=== PATIENT | male | born 1965 | race Caucasian/White ===

== ENCOUNTER 2018-10-17 00:23 | Outpatient (CLI) | payer BC, SELFPAY ==
--- NOTE | 2018-10-17 13:00 | ETT_ITS ---
*[facility]* *[facility]* [address] [place] [address] Stress Electrocardiography Pee protocol Date of study: 10/17/2018 *PATIENT PRESENTATION* Height: 166.4cm (65.5in) Blood Pressure: Weight: 90.9kg (200lb) BSA: 2.08m^2 Referring physician: Karan Wright Ordering physician: Karan Wright Impressions: Normal study after maximal exercise. Summary: 1. Stress ECG conclusions: The stress ECG is negative. 2. Stress: The target heart rate was achieved. There is a normal resting blood pressure with an appropriate response to stress. The patient experienced no chest pain during stress. Exercise capacity is average for age. Indication: R07.9. History: REASON FOR VISIT: INTERMITTENT CHEST PAINS FOR PAST 6-7 MONTHS RADIATING TO THE LEFT ARM PIT AND NECK. SYMPTOMS LAST FOR ONLY A FEW MINUTES EACH TIME, OCCURS AT REST AND WITH ACTIVITY. NOTHING MAKES IT BETTER OR WORSE. HE DENIES ANY ASSOCIATED SHORTNESS OF BREATH. HIS FATHER RECENTLY HAD CARDIAC STENTS PLACED. Risk factors: FORMER SMOKER. QUIT 4 YEARS AGO. Family history of coronary artery disease. Obesity. Dyslipidemia. Cholesterol: 245mg/dl. HDL: 39mg/dl. LDL: 220mg/dl. Triglycerides: 180mg/dl. ALLERGIES: NO KNOWN ALLERGIES. MEDICATIONS: SIMVASTATIN 40 MG Q HS. ASPIRIN 81 MG DAILY. Protocol: Pee protocol. Baseline ECG: SINUS RHYTHM. HR 78 BPM. Stress protocol: + +---+ + !Stage !HR !BP (mmHg) ! + +---+ + !Baseline supine !78 !126/80 (95) ! + +---+ + !Baseline standing !88 !122/80 (94) ! + +---+ + !Stage I; 1.7mph, 10degrees; 3 min !113!140/80 (100)! + +---+ + !Stage II; 2.5mph, 12degrees; 3 min !128!160/80 (107)! + +---+ + !Stage III; 3.4mph, 14degrees; 3 min!140!166/90 (115)! + +---+ + !Immediate post stress !---!166/84 (111)! + +---+ + !Recovery; 3 min !95 !140/74 (96) ! + +---+ + !Recovery; 6 min !90 !130/70 (90) ! + +---+ + * Stress results: Maximal heart rate during stress was 148bpm (88% of maximal predicted heart rate). The maximal predicted heart rate was 168bpm. The target heart rate was achieved. There is a normal resting blood pressure with an appropriate response to stress. The rate-pressure product for the peak heart rate and blood pressure was 29589jl Hg/min. The patient experienced no chest pain during stress. Exercise capacity is average for age. Stress ECG: STRESS TEST ENDED IN 10 MINUTES BECAUSE OF FATIGUE. NORMAL HEART RATE AND BLOOD PRESSURE RESPONSE TO EXERCISE. MAX HR = 148 % OF TARGET = 88 NO ECTOPY APPROXIMATE METS ACHIEVED = 11.80 NO [address]GINA. NO SIGNIFICANT ST SEGMENT CHANGES. AVERAGE FUNCTIONAL CAPACITY FOR EXERCISE. The stress ECG is negative. Study data: Alton Kerns MD supervised and was readily available during the procedure. This study was interpreted by [facility]. Study status: Routine. Consent: The risks, benefits, and alternatives to the procedure were explained to the patient and informed consent was obtained. Procedure: Initial setup. A baseline ECG was recorded. Surface ECG leads and manual cuff blood pressure measurements were monitored. Heart sounds: Normal. Lung sounds: Normal. Treadmill exercise testing was performed using the Pee protocol. Study completion: The patient tolerated the procedure well and was discharged from the lab. Discharge: The patient left the laboratory in stable condition. Birthdate: Patient birthdate: 1965. Sex: Gender: male. Study date: Study date: 10/17/2018. Study time: 01:00 PM. Signature Documentation: The Stress ECG portion of this study was interpreted by Alton Kerns MD. Electronically signed by Alton Kerns 10/17/2018 17:48
== END 2018-10-17 00:43 ==
PROVIDERS: PCP Family Medicine; Visit Provider Nurse Practitioner Family
DX: R07.9 Chest pain, unspecified (principal); E78.5 Hyperlipidemia, unspecified; E66.9 Obesity, unspecified; Z87.891 Personal history of nicotine dependence; Z82.49 Family history of ischemic heart disease and other diseases of the circulatory system
CPT/HCPCS: 93017

== ENCOUNTER 2018-10-29 11:03 | Outpatient (CLI) | payer BC, SELFPAY ==
[2018-10-29 15:16] LABS: Cholesterol 246 mg/dL (50-200); HDL Cholesterol 42 mg/dL (40-60); LDL CHOLESTEROL 178 mg/dL (<100); Triglyceride 213 mg/dL (30-150)
[2018-10-29 16:04] LABS: Hemoglobin A1C 5.7 % (4.5-6.2)
== END 2018-10-29 11:23 ==
PROVIDERS: PCP Family Medicine; Visit Provider Family Medicine
DX: E78.5 Hyperlipidemia, unspecified (principal); E74.39 Other disorders of intestinal carbohydrate absorption
CPT/HCPCS: 36415; 80061; 83721; 83036

== ENCOUNTER 2021-05-08 09:31 | Outpatient (CLI) | payer BC, SELFPAY ==
--- NOTE | 2021-05-08 09:15 | DI.RAD_ITS ---
Exam(s) XR KNEE LT 3V AP,LAT,CHANTEL EXAM: XR KNEE LT 3V AP,LAT,CHANTEL CLINICAL HISTORY: LEFT KNEE PAIN. TECHNIQUE: 2D digital imaging was performed. COMPARISON: CR LEFT KNEE LIMITED 1 OR 2 VIEWS from 07/18/2012 FINDINGS: There is no evidence of fracture but there is a joint effusion noted. There has been interval surger y. There is a fastener device evident at the level of the anterior tibial tubercle now evident. The re are significant osteoarthritic degenerative changes now evident. There is [id number] narrowing of the medial compartment. Also prominent degenerative changes and osteophytes at the patellofemoral compartment level. Lesser amount of degenerative changes evident in the lateral compartment. IMPRESSION: Compared to 2011 there has been interval surgical procedure. Significant osteoarthritic degenerative changes. Joint effusion noted DATA REPOSITORY: RADIATION DOSE DELIVERED:
--- NOTE | 2021-05-08 09:45 | DI.RAD_ITS ---
Exam(s) XR STANDING ALIGNMENT EXAM: XR STANDING ALIGNMENT CLINICAL HISTORY: Surgical planning. TECHNIQUE: 2D digital imaging was performed. COMPARISON: Left knee x-rays same date FINDINGS: There healed oblique fractures of the right tibia and fibula approximately midshaft level. There is a fastener in the left proximal tibial metaphysis and there is significant narrowing of the medial compartment of the left knee. Mild narrowing of the medial compartment of the opposite-right knee. Preserved height of the lateral compartments of both knees noted. Hips appear unremarkable as do the ankles. IMPRESSION: DATA REPOSITORY: RADIATION DOSE DELIVERED:
== END 2021-05-08 09:32 | disposition home or self-care (01) ==
PROVIDERS: PCP Family Medicine; Referring Provider Family Medicine; Visit Provider Student in an Organized Health Care Education/Training Program
DX: M17.12 Unilateral primary osteoarthritis, left knee (principal); M25.462 Effusion, left knee
CPT/HCPCS: 73562; 77073

== ENCOUNTER 2021-08-21 01:59 | Outpatient (CLI) | payer BC, SELFPAY ==
[2021-08-21 07:54] LABS: HCT 45.9 % (40.0-50.0); HGB 15.8 g/dL (13.5-17.5); MCH 30.1 pg (27.0-33.0); MCHC 34.4 % (32.0-36.0); MCV 87.4 fL (80-95); MPV 10.2 fL (8.0-11.0); Platelet Count 224 10^3/uL (130-400); RBC 5.25 10^6/uL (4.36-5.78); RDW 12.4 % (11.8-14.1); RDW-SD 40.1 fL; WBC 5.75 10^3/uL (4.4-10.8)
[2021-08-21 08:52] LABS: Anion Gap 10.9 mmol/L (3-11); BUN 17 mg/dL (7-18); CO2 27.1 mmol/L (21.0-32.0); Calcium 9.2 mg/dL (8.5-10.1); Chloride 102 mmol/L (98-107); Glucose 125 mg/dL (74-106); Potassium 4.3 mmol/L (3.5-5.1); Sodium 140 mmol/L (136-145)
== END 2021-08-21 02:00 | disposition home or self-care (01) ==
LOC: LBO 01:59
PROVIDERS: PCP Family Medicine; Visit Provider Student in an Organized Health Care Education/Training Program
DX: M25.562 Pain in left knee (principal); M17.12 Unilateral primary osteoarthritis, left knee; Z01.818 Encounter for other preprocedural examination; Z01.812 Encounter for preprocedural laboratory examination
CPT/HCPCS: 36415; 80048; 85027

== ENCOUNTER 2021-08-21 02:03 | Outpatient (CLI) | payer BC, SELFPAY ==
[2021-08-21 11:10] LABS: Source Nasal/Nares
[2021-08-21 14:55] LABS: COVID-19 PCR Negative (Negative)
== END 2021-08-21 02:04 | disposition home or self-care (01) ==
LOC: LBO 02:04
PROVIDERS: PCP Family Medicine; Visit Provider Student in an Organized Health Care Education/Training Program
DX: Z20.822 Contact with and (suspected) exposure to COVID-19 (principal); Z01.818 Encounter for other preprocedural examination
CPT/HCPCS: 87635

== ENCOUNTER 2021-08-23 08:09 | Day surgery (SDC) | payer BC, SELFPAY ==
[2021-08-23] VITALS (11 sets, daily range): BP systolic 119–154; BP diastolic 75–96; PULSE 60–78; RESP 13–20; TEMP 36.3–36.8; O2SAT 94–99; BMI 31.8
[2021-08-23] MEDS: Acetaminophen 500 MG TAB 1000 MG PO ×2 (08:50→13:31)
[2021-08-23] MEDS: Gabapentin 300 MG CAP PO (08:50)
[2021-08-23] MEDS: Celecoxib 200 MG CAP 400 MG PO (08:50)
[2021-08-23] MEDS: Lactated Ringers 1,000 ML 80 ML IV (09:05)
--- NOTE | 2021-08-23 09:14 | W.ANESPRE ---
General Info Date of Service Date Performed: 08/23/21 Height: 5 ft 6 in Weight: 89.6 kg Body Mass Index (BMI): 31.8 Surgical Procedure: Operation Date: 08/23/21 10:10 Proposed Procedures Side Surgeon p Knee Total Arthroplasty Left Catrachito Ruiz MD Meds Allergies and Home Medications Allergies Allergy/AdvReac Type Severity Reaction Status Date / Time No Known Allergies Allergy Unverified 08/23/21 08:32 Home Medication Medication Instructions Recorded nitroglycerin 0.3 mg sublingual 0.3 mg SL Q5M PRN #25 tab 10/29/18 tablet rosuvastatin 40 mg tablet 40 mg PO DAILY #90 tab 03/09/21 acetaminophen 1,000 mg PO Q8H PRN PRN #90 cap 08/23/21 aspirin 81 mg PO BID #60 tab 08/23/21 celecoxib 200 mg PO BID #60 cap 08/23/21 gabapentin 300 mg PO QHS #14 cap 08/23/21 oxycodone 5 mg PO Q4H PRN #20 tab MDD 6 tabs 08/23/21 pantoprazole 40 mg PO DAILY #30 tab 08/23/21 Current Visit Medications: Current Medications Generic Name Dose Route Start Last Admin Trade Name Freq PRN Reason Stop Dose Admin Acetaminophen 1,000 mg 08/23/21 06:00 08/23/21 08:50 Acetaminophen 500 Mg Tab PO 08/23/21 16:00 1,000 mg PREOP FELICIA Administration Celecoxib 400 mg 08/23/21 06:00 08/23/21 08:50 Celecoxib 200 Mg Cap PO 08/23/21 16:00 400 mg PREOP FELICIA Administration Gabapentin 300 mg 08/23/21 06:00 08/23/21 08:50 Gabapentin 300 Mg Cap PO 08/23/21 16:00 300 mg PREOP FELICIA Administration Tranexamic Acid 1,000 mg/ 60 mls @ 360 mls/hr 08/23/21 06:00 Sodium Chloride IVPB 08/23/21 16:00 PREOP FELICIA Tranexamic Acid 1,000 mg/ 60 mls @ 360 mls/hr 08/23/21 06:00 Sodium Chloride IVPB 08/23/21 16:00 DIRECTED FELICIA Ringer's Solution 1,000 mls @ 80 mls/hr 08/23/21 06:00 08/23/21 09:05 IV 09/21/21 23:59 80 mls/hr INFUSION FELICIA Administration Cefazolin Sodium/Dextrose 2 gm in 50 mls @ 100 mls/hr 08/23/21 06:00 Ancef Duplex IVPB 09/21/21 23:59 PREOP FELICIA IV Miscellaneous Supplies 1 each 08/23/21 06:00 Iv Access IV 09/21/21 23:59 DIRECTED FELICIA Sodium Chloride 0 ml 08/23/21 06:00 Normal Saline Flush 10 Ml Syr IV 09/21/21 23:59 PRN PRN Sodium Chloride 0 ml 08/23/21 06:00 Normal Saline 10 Ml Vial IJ 09/21/21 23:59 DIRECTED PRN Sterile Water 0 ml 08/23/21 06:00 Water,Injection,Sterile 10 Ml Vial IJ 09/21/21 23:59 DIRECTED PRN PFSH Active Problems Active Problems: Problem Status Onset Code Diarrhea 02/22/14 R19.7 Elev transaminase/LDH 09/26/06 R74.0 Hyperlipidemia E78.5 Joint pain M25.50 Non-alcoholic fatty liver disease 08/27/07 K76.0 Tobacco use disorder F17.200 Tubular adenoma of colon 02/18/17 D12.6 Borderline high blood pressure R03.0 Status post arthroscopy of left knee Z98.890 History of appendectomy Z90.49 Brief depressive adjustment reaction F43.21 Throat infection J02.9 Primary osteoarthritis of left knee M17.12 Medical History Medical History Hyperlipidemia Non-alcoholic fatty liver disease Tobacco dependence Surgical History Surgical History (Updated 08/23/21 @ 09:37 by ELLA Novoa) Appendectomy Colonoscopy - MAC (02/18/17) History of total left knee replacement (TKR) (08/23/21) S/P left knee arthroscopy Tobacco Smoking/Tobacco Use Status: Current every day Tobacco Type: smokeless tobacco Alcohol Alcohol Intake: never Substance Use Details: chews tobacco daily-last used 08.23.21 am Vital Signs and Lab Results Vital Signs Most Recent Vital Signs in EMR: Most Recent Vital Signs Temp Pulse Resp BP Pulse Ox 36.8 C 78 16 139/84 99 08/23/21 08:26 08/23/21 08:26 08/23/21 08:26 08/23/21 08:26 08/23/21 08:26 Lab Results Blood Type / Crossmatch: No Data to Display Complete Blood Count: White Blood Count 5.75 10^3/uL (4.4-10.8) 08/21/21 07:51 08/21/21 Red Blood Count 5.25 10^6/uL (4.36-5.78) 08/21/21 07:51 08/21/21 Hemoglobin 15.8 g/dL (13.5-17.5) 08/21/21 07:51 08/21/21 Hematocrit 45.9 % (40.0-50.0) 08/21/21 07:51 08/21/21 Platelet Count 224 10^3/uL (130-400) 08/21/21 07:51 08/21/21 Complete Metabolic Panel: Sodium Level 140 mmol/L (136-145) 08/21/21 07:51 08/21/21 Potassium Level 4.3 mmol/L (3.5-5.1) 08/21/21 07:51 08/21/21 Chloride Level 102 mmol/L (98-107) 08/21/21 07:51 08/21/21 Carbon Dioxide Level 27.1 mmol/L (21.0-32.0) 08/21/21 07:51 08/21/21 Blood Urea Nitrogen 17 mg/dL (7-18) 08/21/21 07:51 08/21/21 Creatinine 1.0 mg/dL (0.70-1.30) 08/21/21 07:51 08/21/21 Estimated GFR/1.73 m2 >= 60.00 (mL/min/1.73m2) 08/21/21 07:51 08/21/21 Calcium Level 9.2 mg/dL (8.5-10.1) 08/21/21 07:51 08/21/21 Glucose Level 125 mg/dL (74-106) H 08/21/21 07:51 08/21/21 Liver Function Panel: No Data to Display Coagulation Panel: No Data to Display Cardiac Panel: No Data to Display Arterial Blood Gas: No Data to Display Venous Blood Gas: No Data to Display Pancreas Panel: No Data to Display Thyroid Panel: No Data to Display Infectious Disease: Coronavirus (COVID-19)(PCR) Negative (Negative) 08/21/21 08:34 08/21/21 Coronavirus 2019 Source Nasal/Nares 08/21/21 08:34 08/21/21 Blood Cultures: No Data to Display Toxicology Panel: No Data to Display Imaging and Studies Imaging and Studies Stress Test Summary: 10/17/2018: Impressions: Normal study after maximal exercise. Summary: 1. Stress ECG conclusions: The stress ECG is negative. 2. Stress: The target heart rate was achieved. There is a normal resting blood pressure with an appropriate response to stress. The patient experienced no chest pain during stress. Exercise capacity is average for age. Anesthesia Assessment and Plan Anesthesia History Personal History: No History of Anesthesia Complications Family History: No Family History of Anesthesia Complications Exercise Tolerance Exercise Tolerance: Metabolic Equivalents>4 Pertinent Negatives Pertinent Negatives: No Symptoms of GERD, No Major Cardiovascular Symptoms or Complaints and No Major Pulmonary Symptoms or Complaints Cardiac & Pulmonary Exam Cardiac Exam: Normal S1/S2 Heart Sounds Pulmonary Exam: Clear Bilateral Breath Sounds Airway Exam Known Difficult Airway: No Mallampati Class: 2 Mouth Opening: Normal (> 3cm) Thyromental Distance: Greater than 3 cm Neck Range of Motion: Full ROM Neck Circumference: Normal Teeth Condition: Normal Dentition ASA Classification ASA Score: ASA 2 Emergency Case?: No NPO Status NPO Status: NPO Clears >2 hours, Solids >8 hours Anesthesia Plan Resuscitation Status: Full Code Anesthesia Technique: Spinal Anesthesia Airway Planned: Natural Airway Pain Management: Surgeon and patient request nerve block Monitors Used: Standard Monitors
--- NOTE | 2021-08-23 09:36 | PDOC.DSDIS_ITS ---
Documented by User: ELLA Novoa 08/23/21 14:10 Discharge Plan Disposition Patient Disposition: HOME Condition: Good Discharge Details Reason For Visit: Left TKA Attending Provider: Catrachito Ruiz Primary Care Provider: Yamil Abrams Home Meds and New Rx's Prescriptions: New celecoxib 200 mg capsule 200 mg PO BID Qty: 60 RF: 0 aspirin 81 mg tablet,delayed release (DR/EC) 81 mg PO BID Qty: 60 RF: 0 pantoprazole 40 mg tablet,delayed release (DR/EC) 40 mg PO DAILY Qty: 30 RF: 0 gabapentin 300 mg capsule 300 mg PO QHS Qty: 14 RF: 0 acetaminophen 500 mg capsule 1,000 mg PO Q8H PRN PRNQty: 90 RF: 3 oxycodone 5 mg tablet 5 mg PO Q4H MDD 6 tabs PRN (Reason: pain) Qty: 20 RF: 0 Continued nitroglycerin 0.3 mg tablet, sublingual 0.3 mg SL Q5M PRN (Reason: chest pain) Qty: 25 RF: 0 rosuvastatin 40 mg tablet 40 mg PO DAILY Qty: 90 RF: 3 Discontinued aspirin [Aspirin Low-Strength] 81 MG tablet,chewable 81 mg PO DAILY 4 Days RF: 30 Discharge Instructions Additional Instructions: Total Knee Discharge Instructions Activity: The most important activity is to walk. You should try to take short walks a few times a day. It is important that when resting you work on keeping the knee straight. Avoid putting a pillow behind the knee as this will encourage flexion. Work on range of motion exercises as provided by Physical Therapy. If you have the [employer] bike coming, this will be your primary tool for exercise after the knee replacement. You should use it and follow the directions for the knee. Utilize the other exercises sparingly based on your symptoms. - Start outpatient physical therapy within 2 weeks. - You should wear the KENDAL hose on both legs for 2 weeks. You may remove these at night. You may also use any compression sock in place of the KENDAL hose. - Utilize [employer] to review exercises, see videos on exercises and obtain basic information pertaining to your surgery and your recovery. Dressing: Remove the Samir wrap by 2 days after your surgery and put on the KENDAL stocking given to you from the hospital. Keep the surgical dressing (underneath the SAMIR wrap) in place for at least one week. After the first week it may be removed and replaced with light gauze and tape or nothing. The wound and dressing may get wet after 3 days but avoid soaking the dressing or otherwise it will need to be changed. Many people prefer covering the dressing with cling wrap (saran wrap) to minimize it from getting soaked. If it gets wet, just pat dry. If it starts to peel off then it will need to be changed. Medications: - You should take Tylenol and anti-inflammatory Celebrex as your primary pain control medications. If the Celebrex is too expensive or not covered, please call the office for another alternative (Advil/Ibuprofen or Naproxen/Aleve) - You have been prescribed a stronger pain medication Oxycodone for breakthrough pain, take as needed as prescribed. - You have also been prescribed a stomach acid reduction agent Pantoprozole to help reduce stomach acid and reflux. - You have been prescribed Gabapentin to take at night for restlessness and nerve pain. - You will be taking Aspirin 81mg twice a day for DVT prevention unless instructed otherwise. - If you have constipation you should take Colace or Miralax (both [id number]). It takes most people 3-4 days to have a bowel movement. Follow-up: 2 weeks If you have any acute concerns or questions, please do not hesitate to contact the office at [phone]. You may contact Dr. Ruiz with any questions after hours through the hospital at [phone] or on his cell phone at [phone]. Stand Alone Forms: Anesthesia Discharge Inst., Deni.Nerve Block Instructions, [employer] (DSU) Equipment/Supplies: Walker Activity:: Activity as Tolerated Shower/Bathe:: Cover Diet:: As Tolerated Discharge Orders Discharge Orders: Discharge Order (Routine); Ordered 08/23/21 Ordered By: Catrachito Ruiz DS: Diagnosis Discharge Diagnosis (1) Primary osteoarthritis of left knee: Status: Acute (2) History of total left knee replacement (TKR): Status: Acute Documented by User: Catrachito Ruiz MD 08/23/21 15:08 Discharge Plan Disposition Patient Disposition: HOME Condition: Good Discharge Details Reason For Visit: Left TKA Attending Provider: Catrachito Ruiz Primary Care Provider: Yamil Abrams Home Meds and New Rx's Prescriptions: New celecoxib 200 mg capsule 200 mg PO BID Qty: 60 RF: 0 aspirin 81 mg tablet,delayed release (DR/EC) 81 mg PO BID Qty: 60 RF: 0 pantoprazole 40 mg tablet,delayed release (DR/EC) 40 mg PO DAILY Qty: 30 RF: 0 gabapentin 300 mg capsule 300 mg PO QHS Qty: 14 RF: 0 acetaminophen 500 mg capsule 1,000 mg PO Q8H PRN PRNQty: 90 RF: 3 oxycodone 5 mg tablet 5 mg PO Q4H MDD 6 tabs PRN (Reason: pain) Qty: 20 RF: 0 Continued nitroglycerin 0.3 mg tablet, sublingual 0.3 mg SL Q5M PRN (Reason: chest pain) Qty: 25 RF: 0 rosuvastatin 40 mg tablet 40 mg PO DAILY Qty: 90 RF: 3 Discontinued aspirin [Aspirin Low-Strength] 81 MG tablet,chewable 81 mg PO DAILY 4 Days RF: 30 Discharge Instructions Additional Instructions: Total Knee Discharge Instructions Activity: The most important activity is to walk. You should try to take short walks a few times a day. It is important that when resting you work on keeping the knee straight. Avoid putting a pillow behind the knee as this will encourage flexion. Work on range of motion exercises as provided by Physical Therapy. If you have the [employer] bike coming, this will be your primary tool for exercise after the knee replacement. You should use it and follow the directions for the knee. Utilize the other exercises sparingly based on your symptoms. - Start outpatient physical therapy within 2 weeks. - You should wear the KENDAL hose on both legs for 2 weeks. You may remove these at night. You may also use any compression sock in place of the KENDAL hose. - Utilize [employer] to review exercises, see videos on exercises and obtain basic information pertaining to your surgery and your recovery. Dressing: Remove the Samir wrap by 2 days after your surgery and put on the KENDAL stocking given to you from the hospital. Keep the surgical dressing (underneath the SAMIR wrap) in place for at least one week. After the first week it may be removed and replaced with light gauze and tape or nothing. The wound and dressing may get wet after 3 days but avoid soaking the dressing or otherwise it will need to be changed. Many people prefer covering the dressing with cling wrap (saran wrap) to minimize it from getting soaked. If it gets wet, just pat dry. If it starts to peel off then it will need to be changed. Medications: - You should take Tylenol and anti-inflammatory Celebrex as your primary pain control medications. If the Celebrex is too expensive or not covered, please call the office for another alternative (Advil/Ibuprofen or Naproxen/Aleve) - You have been prescribed a stronger pain medication Oxycodone for breakthrough pain, take as needed as prescribed. - You have also been prescribed a stomach acid reduction agent Pantoprozole to help reduce stomach acid and reflux. - You have been prescribed Gabapentin to take at night for restlessness and nerve pain. - You will be taking Aspirin 81mg twice a day for DVT prevention unless instructed otherwise. - If you have constipation you should take Colace or Miralax (both [id number]). It takes most people 3-4 days to have a bowel movement. Follow-up: 2 weeks If you have any acute concerns or questions, please do not hesitate to contact the office at [phone]. You may contact Dr. Ruiz with any questions after hours through the hospital at [phone] or on his cell phone at [phone]. Stand Alone Forms: Anesthesia Discharge Inst., Anes.Nerve Block Instructions, [employer] (DSU) Equipment/Supplies: Walker Activity:: Activity as Tolerated Shower/Bathe:: Cover Diet:: As Tolerated Discharge Orders Discharge Orders: Discharge Order (Routine); Ordered 08/23/21 Ordered By: Catrachito Ruiz
[2021-08-23] MEDS: ceFAZolin 2 GM/50 ML BAG IVPB (10:21)
[2021-08-23] MEDS: Bupivacaine 0.25% Pres-Free 30 ML VIAL (10:34)
[2021-08-23] MEDS: Normal Saline 20 ML VIAL (10:34)
[2021-08-23] MEDS: Ketorolac 30 MG/ML VIAL (10:34)
--- NOTE | 2021-08-23 10:36 | W.ANESNERVE ---
Nerve Block Single Injection Procedure Date and Time Date Performed: 08/23/21 Procedure Start: 09:42 Location Where Procedure Performed Procedure Location: Day Surgery Unit Reason Performed: Postoperative Analgesia Requesting Provider: Catrachito Ruiz Timeout Performed Timeout Performed: No Monitoring Used ECG, Blood Pressure and SpO2 Sterility Sterility: Hand Hygiene, Surgical Cap, Surgical Mask, Sterile Gloves, Eye Protection and Chlorhexidine Sedation Given During Procedure Sedation Given (Indicate Dose Given): Versed IV Dose:: 2mg Patient Mental Status Patient Mental Status: Awake Nerve Block 1st Nerve Block: Laterality: Left Block Type: Fascia Iliaca Needle / Catheter Used: 100mm SonoPlex II Local Anesthetic Bolus (Indicate Dose Given): Lidocaine used for local infiltration of skin, Injected in 3-5ml increments after negative blood aspiration and Bupivacaine 0.25% Dose:: 15mL Additives (Indicate Dose Given): None Ultrasound: Sterile probe cover and gel used Ultrasound Image Saved?: Yes Nerve Stimulator: Not Used Paresthesia: None Procedure Tolerated: No Complications Procedure Outcome: Successful Performed By: Pamela Oreilly
--- NOTE | 2021-08-23 11:49 | W.PM.OP ---
Date of service: 08/23/21 Time of Service: 11:49 Operative Note Operative Note DATE OF PROCEDURE: 08/23/21 PRE-OP DIAGNOSIS: Left Knee Osteoarthritis POST-OP DIAGNOSIS: same PROCEDURE: Left Total Knee Replacement SURGEON: Catrachito Ruiz BI ANALYST: Oliverio Golden Refer to Anesthesia Record ESTIMATED BLOOD LOSS: 200 PATHOLOGY: none sent TOURNIQUET TIME: 0 COMPLICATIONS: None Patient was transported to: PACU Patient's condition: stable Implants: 1. Depuy Attune Cementless Cruciate Retaining Femoral Component, Size 6 2. Depuy Attune Cementless Rotating Platform Tibial Component, Size 6 3. Depuy Attune 6x5mm CR/RP Poly 4. Depuy Attune Patellar Component, Size 38 Indications: I have seen Darrius in clinic for symptoms of knee arthritis, confirmed with radiographic findings. He has exhausted nonoperative methods and was having significant limitations in daily function and desired better function and less pain. I discussed the technical details of a knee replacement. I explained the risks of the procedure to include, but not limited to, bleeding, infection, pain, stiffness, fracture, damage to nerves and vessels, damage to muscles and tendons, loosening, need for repeat procedure, blood clot and cardiopulmonary demise. Despite these risks, Darrius elected to proceed. Findings: There was significant signs of arthritis throughout the knee involving all 3 compartments. There was notable scarring around the patellar tendon and the prominent tibial tubercle. Procedure Description: Darrius was greeted in the preoperative holding area where the correct side was identified and marked. The consent was reviewed with the patient and signed. The history and physical was updated. All questions were answered. Preoperative medications were administered: Acetaminophen 1000mg, Celebrex 400mg, and Gabapentin 300mg. An adductor canal block was then administered by the anesthesia team in the PACU. Darrius was taken back to the operating room. A spinal anesthestic was then administered. The patient was placed into the supine position on the operating room table. A nonsterile tourniquet was placed high onto the leg but only used for cementing. Posts were placed for positioning during the procedure. All bony prominences were well padded. Prophylactic antibiotics in the form of Cefazolin were administered. 1g of Tranxemic Acid was given intravenously within 30 minutes of incision. The left leg was then prepped with Chloraprep and draped in a standard fashion with impervious stockinette. A second prep with Chloraprep was performed prior to application of Iodine impregnated skin protection. A timeout to confirm correct identity, side and site, procedure, allergies, anesthesia, and medical concerns was performed. With the knee in some flexion, a midline incision was made overlying the knee. Full thickness skin flaps were raised once the extensor mechanism was encountered. These were raised medially and laterally. Any bleeding was controlled with electrocautery. Once the extensor mechanism was fully exposed, a medial parapatellar arthrotomy was performed in a flexed position. All bleeding from the arthrotomy and the geniculate arteries was coagulated. A medial subperiosteal peel was performed with electrocautery to the midcoronal plane. The fat pad was removed while keeping the patellar tendon protected. The anterior distal femur synovium was removed for later visualization. The ACL and PCL were resected and the anterior horn of the lateral meniscus was transected. The knee was then flexed with the patella everted. Large osteophytes from the tibia were removed. Large osteophytes from the femur were removed. There was notable scarring around the patellar tendon an the prominent tibial tubercle. This was released off of the periphery of the tibial plateau. Using a step drill, and based on preoperative templating, the femoral canal was entered. This was done with a step drill without any difficulty. The intramedullary distal femoral cut guide was inserted, set to a 5 degree valgus cut and 9mm cut thickness. The distal femoral cut guide was then held in position and pinned. With the soft tissues protected, the distal cut was performed. This was passed over a few times to ensure a planar cut. I then turned attention to the tibia. The extramedullary guide was placed onto the leg. The distal aspect was slid medial to adjust for position of center of ankle and stay in line with shaft of the tibia. Approximately 3-5 degrees of posterior slope was kept in the proximal cutting guide. The center of the guide was aligned with the PCL. The stylus was used to assess cut thickness. The medial side, most involved side, was set for a 4mm cut. This was then held in position and pinned into place with 2 additional pins and a cross pin for stability. The medial and lateral collateral ligaments were protected and the cut was performed. With this completed, it was assessed and noted to be of appropriate dimensions. The guide was removed. A spacer block was inserted and the knee was brought into extension. The 5mm spacer block provided full extension, without hyperextension and with stability of both the medial and lateral collateral ligaments was assessed. The pins from the femur and the tibia were then removed. The distal femur was then sized. The anterior stylus was placed onto the lateral ridge of the anterior femur. This indicated a size 6 femur. The external rotation of the guide was adjusted to 3 degrees to match the epicondylar axis, perpendicular to [place]?s line. The 4-in-1 cutting guide was the placed. The posterior medial femur cut was evaluated and appeared of good thickness. The spacer block was inserted underneath the cutting guide and stability was confirmed in 90 degrees of flexion. An eber wing was used to confirm appropriate position of the anterior cut to avoid notching. This cutting guide was ensured to be flush on the cut surface and then pinned into place with headed pins. While protecting the soft tissues, quad tendon, and collateral ligaments, the anterior and posterior cuts were performed with a saw. The central two pins were removed and the posterior and anterior chamfers were cut next. The notch-cutting guide was placed. This was pinned to lateralize the femoral component as much as possible while keeping it flush on the cut surface. This was then pinned into position. A reciprocating saw was used to make the notch cut. A rasp smoothed the cut surfaces. The medial and lateral menisci were removed. A trial femoral component was then inserted, impacted down to the cut surfaces, and the lug holes were drilled. A provisional trial tibial component was placed and the knee was brought through range of motion. There was noted to be excellent extension and flexion. There was no significant instability. The patella was tracking without thumbs. A size 5mm polyethylene component provided the best range of motion and stability with less than 2mm gapping with medial and lateral stress and full extension without significant hyperextension. The tibial cut surface was fully exposed. The tibia was then sized as a 6. The tibia had been previously marked during trialing to correspond to the center of the tibial component to help with rotation. The trial was aligned to this oliverio, approximately rotated to the medial 1/3rd of the tibial tubercle. The trial was pinned into place. The tibia was prepared with a reamer and a keel punch and lug holes. The knee was then brought into extension and the patella was measured as 29mm. Using the patellar clamp and cut guide, this was resected to a flat surface with at least 13mm of thickness remaining. The size 38 patella fit the best. This was oriented and then clamped into position. The lugs were drilled. The trial components were removed. The final components were opened on the back table. The periosteal and capsular tissues, especially posteriorly, around the knee were then systematically injected with a periarticular cocktail consisting of 50cc 0.25% Marcaine, 30mg Ketorolac, 20cc of Exparal and 50cc of injectable saline. The knee was thoroughly irrigated with a pulse lavage and dried. Irrisept was also used to irrigate the tissues. On the back table, with the implants opened, the cement was mixed. One batch of high viscosity cement was prepared with vacuum assistance. After the cement was ready a small amount was placed on the cut surface of the patella and the patellar button was clamped into position and held. While the cement was hardening, the cementless knee components were placed. Starting with the tibial component, the tibia was subluxed anteriorly and the lug holes of the component were lined up. The tibia was then impacted with an impactor and mallet until the tibial component was in contact with the tibia. The final polyethylene component was inserted. Then, the femoral component was inserted. The lug holes were aligned and the component was impacted into position. The knee was irrigated with Irrisept chlorhexadine solution. This was allowed to sit in the knee for 3 minutes. After the cement had finally cured, approximately 15min, the clamp was removed from the patella and the knee was taken through range of motion. The patella was tracking with a no-thumbs technique. The capsule was then reapproximated with a No. 1 Vicryl at multiple locations. The capsule was finally closed with a No. 2 Stratafix, barbed suture. The second dosing of 1g TXA was started. Deep tissues were then reapproximated with 0 Vicryl and 2-0 Vicryl. The skin was closed with a running 3-0 Monocryl in a subcuticular fashion. This was reinforced with skin glue. A Mepilex silver dressing was applied along with a [id number] ROBERTO wrap. A CryoCuff was applied. Darrius was transferred to the hospital bed without difficulty an suffering no apparent complication. Darrius has a good prognosis. Physical therapy will start today and without restrictions, weight-bearing as tolerated. Aspirin 81mg BID will be used for DVT prophylaxis.
[2021-08-23] MEDS: oxyCODONE 5 MG TAB PO (13:31)
--- NOTE | 2021-08-23 14:13 | PT.INIE ---
Date of service: 08/23/21 Time of Service: 14:13 PT Notes Visit Reasons: Left TKA Physical Therapy Day Surgery Initial Evaluation Date: 08/23/2021 Referring Doctor: ELLA Novoa PT Orders: PT CONSULT: Status post Ortho surgery. Status post left TKA. Precautions: WBAT on left LE with AD. Patient Profile/Admitting Diagnosis: Irving is a 56-year-old male with primary unilateral osteoarthritis of the left knee and is status post left total knee arthroplasty on postoperative day 0. PMHX: Medical History Hyperlipidemia Non-alcoholic fatty liver disease Tobacco dependence Surgical History Appendectomy Colonoscopy - MAC (02/18/17) Social History/Home Situation: Lives with in a private home. Has 2 steps to enter without rails through the garage and 4 steps through the front of the house with rails on both sides. 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 Independent with all aspects of ADLs prior to surgery. Equipment Owned/DME: None Subjective: Reports numbness on the sole of the left foot. Denies left knee pain, headache, dizziness, and chest pain throughout. Objective: General Observation: TEDS on R leg. ROBERTO wraps to left LE. Cryocuuff to left knee. Mental Status: Alert oriented x4. Pain: 0/10 ROM: Right Lower Extremity: Hip flexion WFL. Hip abduction WFL. Knee flexion WFL. Ankle dorsiflexion WFL. Ankle plantarflexion WFL. Left Lower Extremity: Hip flexion WFL. Hip abduction WFL. Knee flexion 30 degrees to 100 degrees. Knee extension -30 degrees ankle dorsiflexion WFL. Ankle plantarflexion WFL. Strength: Right Lower Extremity: Hip flexors 5/5. Hip abductors 5/5. Knee flexors 5/5. Knee extensors 5/5. Ankle dorsiflexors 5/5. Ankle plantarflexors 5/5. Left Lower Extremity:Hip flexors 4/5. Hip abductors 4/5. Knee flexors 3-/5. Knee extensors 3-/5. Ankle dorsiflexors 5/5. Ankle plantarflexors 5/5. Sensation: Numbness on the left sole of the foot otherwise intact as to pain and light pressure on bilateral lower extremities Bed Mobility/Transfers: Supine to sit supervision Sit to stand standby assist Stand to sit standby assist Bed to chair standby assist Gait: Instructed patient with level surface ambulation of 150 feet using front-wheeled walker with step through gait pattern requiring only standby assist. Reports numbness on the left sole of the feet but is able to manage with safe gait pattern. Good left quad activation. Minimal cues provided for overall safety as patient tends to look down on the floor too much. Stairs: Able to negotiate up and down 6 x 4 inch steps and 4 x 6 inch steps while holding onto 1 rail and using a single-point cane with the other hand with step to gait pattern requiring only standby assist with minimal cues provided for safety and correct technique. Balance: Static Sitting: Normal Dynamic Sitting: Normal Static Standing: Fair Dynamic Standing: Fair Special Tests: Mobility Limitations Standardized Measure [facility] AM-PAC 6 clicks Basic Mobility Inpatient Short Form: Raw Score: 24 CMS Score: 0% deficit Informed Consent/Education: Patient instructed in purpose of PT consult. Packet containing TKA exercise protocol has been given to patient. Education and training on initial set of exercises that can be done at home have been completed with patient. Assessment: Irving requires the use of front wheeled walker for all mobility ADL performance to reduce fall risk and maximize safety at home. Left sole of foot numb. Patient presents with clinical signs and symptoms consistent with current/admitting diagnoses that have resulted to mobility limitations, gait instability, generalized weakness, and impairment of motor control as demonstrated by the following impairment level findings: 1. Decreased strength to left knee major muscle groups 2. Impaired standing balance 3. Limitation of joint range of motion in left knee 4. Number left sole of foot Impairments are contributing to the following functional limitations: 1. Inability to safely ambulate without assistive device 2. Increase completion time for mobility ADL performance 3. Increased fall risk Patient is assessed as a 96435 moderate complexity based on the following: History: 56-year-old male with impairment level findings, functional limitations, and past medical history as indicated above Examination: Demonstrable impairment in strength, balance, and mobility level with underlying impairments and functional limitations as documented above Presentation: Evolving Decision Makin moderate complexity Goals: N/A. PT evaluation and 1-2 treatment sessions only for functional mobility training using recommended AD and for HEP instruction. Plan of Care/Treatment Plan: N/A. PT evaluation and 1-2 treatment session only for functional mobility training using recommended AD and for HEP instruction. DISCHARGE RECOMMENDATIONS: Home when medically cleared by orthopedic surgeon. Outpatient PT services to facilitate return to vocational activities and to independent community ambulation without an assistive device. TREATMENT CODE/TIME: 9716 2 x 20 minutes, 9753 0 x 9 minutes beginning at 14:13 PM. Thank you for the opportunity to participate in the care of this patient. Radha Marti PT, DPT, CLT [facility] [place], [place]
--- NOTE | 2021-08-23 15:26 | W.ANESPOSTOP ---
Postoperative Evaluation Date, Time and Location Date Performed: 08/23/21 Time Performed: 15:26 Patient Location: Day Surgery Unit Vital Signs Most Recent Imported Vital Signs: Most Recent Vital Signs Temp Pulse Resp BP Pulse Ox 36.4 C L 69 18 140/82 98 08/23/21 14:07 08/23/21 14:07 08/23/21 14:07 08/23/21 14:07 08/23/21 14:07 Pain Score Most Recent Pain Score: Most Recent Pain Score Pain Level 0 08/23/21 14:07 Assessment Mental Status: Awake (Alert & Oriented to Patient Baseline) Airway and Respiratory Function: Patent airway with normal (patient baseline) respiratory exam Cardiovascular Function: Hemodynamically Stable Hydration Status: Adequately Hydrated Nausea & Vomiting: No Nausea or Vomiting Pain: Pt. Denies Any Pain Peripheral Nerve Block: Regional nerve block not resolved at time of post operative discharge Postoperative Comments:: Patient discharged prior to anesthesia being able to see him. Per [facility] RN patient doing well with pain well controlled.
--- NOTE | 2021-08-23 21:51 | W.PM.OP ---
Date of service: 08/23/21 Operative Note Operative Note DATE OF PROCEDURE: 08/23/21 PRE-OP DIAGNOSIS: Left Knee DJD POST-OP DIAGNOSIS: same PROCEDURE: 1. Depuy Attune Cementless Cruciate Retaining Femoral Component, Size 6 2. Depuy Attune Cementless Rotating Platform Tibial Component, Size 6 3. Depuy Attune 6x5mm CR/RP Poly 4. Depuy Attune Patellar Component, Size 38 SURGEON: Catrachito Ruiz INSERTING PRESS OPERATOR: Brett Golden ANESTHESIA TYPE: Spinal Refer to Anesthesia Record ESTIMATED BLOOD LOSS: 200 PATHOLOGY: none sent TOURNIQUET TIME: 0 Patient was transported to: PACU Patient's condition: stable Implants: 1. Depuy Attune Cementless Cruciate Retaining Femoral Component, Size 6 2. Depuy Attune Cementless Rotating Platform Tibial Component, Size 6 3. Depuy Attune 6x5mm CR/RP Poly 4. Depuy Attune Patellar Component, Size 38
== END 2021-08-23 15:08 | disposition home or self-care (01) ==
PROVIDERS: PCP Family Medicine; Visit Provider Student in an Organized Health Care Education/Training Program
PROC: (CPT 27447; principal; 2021-08-23 10:00)
DX: M17.12 Unilateral primary osteoarthritis, left knee (principal); K76.0 Fatty (change of) liver, not elsewhere classified; E78.5 Hyperlipidemia, unspecified; F17.210 Nicotine dependence, cigarettes, uncomplicated
CPT/HCPCS: 27447; 97162; 97530; J0690; J1885; J2001; J2250; J2405; J3010

== ENCOUNTER 2021-09-07 12:41 | Outpatient (CLI) | payer BC, SELFPAY ==
--- NOTE | 2021-09-07 08:00 | DI.RAD_ITS ---
Exam(s) XR KNEE LT 1V XR STANDING ALIGNMENT EXAM: XR STANDING ALIGNMENT CLINICAL HISTORY: 1ST POST OP L TKA. TECHNIQUE: 2D digital imaging was performed. Standing AP views were performed from the pelvis throu gh the ankles. COMPARISON: CR XR STANDING ALIGNMENT from 05/08/2021 CR XR KNEE LT 1V from 09/07/2021 CR XR KNEE LT 1V from 09/07/2021 FINDINGS: Left total knee prosthesis. No abnormal bony lucencies. Some anterior soft tissue swelling and join t effusion remain present. There are old fractures of the right upper to mid tibia and fibula. There is mild bilateral hip join t space narrowing. The ankles are unremarkable. At the level of the femoral heads, there is a leg l ength discrepancy of approximately 9 millimeters with the right femoral head projecting superior to t he left. Enthesophytes are noted at the iliac wings. IMPRESSION: Mild significant leg length discrepancy. Unremarkable left total knee prosthesis. DATA REPOSITORY: RADIATION DOSE DELIVERED:
== END 2021-09-07 12:42 | disposition home or self-care (01) ==
LOC: DIORS 12:41
PROVIDERS: PCP Family Medicine; Referring Provider Family Medicine; Visit Provider Physician Assistant
DX: Z96.652 Presence of left artificial knee joint (principal); M21.70 Unequal limb length (acquired), unspecified site; Z47.1 Aftercare following joint replacement surgery
CPT/HCPCS: 73560; 77073

== ENCOUNTER 2022-08-23 08:22 | Outpatient (CLI) | payer BC, SELFPAY ==
--- NOTE | 2022-08-23 08:06 | DI.RAD_ITS ---
Exam(s) XR KNEE LT 2V AP,LAT EXAM: XR KNEE LT 2V AP,LAT CLINICAL HISTORY: annual. TECHNIQUE: 2D digital imaging was performed of the left knee. Two images were obtained. AP and lat eral views were obtained. COMPARISON: CR XR KNEE LT 3V AP,LAT,CHANTEL from 05/08/2021 CR XR KNEE LT 1V from 09/07/2021 FINDINGS: BONES: No acute fracture is present. No bony destructive lesion is seen. There is an enthesophyte at the superior patella. JOINTS: There is again seen a left total knee replacement. No suspicious lucencies are seen in or ab out the orthopedic hardware. There is a small joint effusion. SOFT TISSUE: Vascular calcifications are present. IMPRESSION: 1. Stable left TKR. 2. Small joint effusion. DATA REPOSITORY: RADIATION DOSE DELIVERED:
--- NOTE | 2022-08-23 08:15 | DI.RAD_ITS ---
Exam(s) XR TIB/FIB LT EXAM: XR TIB/FIB LT CLINICAL HISTORY: pain in fibula. TECHNIQUE: 2D digital imaging was performed of the left tibia and fibula. Two images were obtained. AP and lateral views were obtained. COMPARISON: CR XR STANDING ALIGNMENT from 09/07/2021 FINDINGS: BONES: No acute fracture is present. No bony destructive lesion is seen. The patient's total knee art hroplasty is incompletely imaged. The visualized portions are grossly unremarkable. SOFT TISSUE: Normal. IMPRESSION: No acute abnormality. DATA REPOSITORY: RADIATION DOSE DELIVERED:
== END 2022-08-23 08:23 | disposition home or self-care (01) ==
PROVIDERS: PCP Family Medicine; Referring Provider Family Medicine; Visit Provider Physician Assistant Surgical
DX: Z96.652 Presence of left artificial knee joint (principal); M25.462 Effusion, left knee
CPT/HCPCS: 73560; 73590

== ENCOUNTER 2022-12-19 02:33 | Outpatient (CLI) | payer BC, SELFPAY ==
[2022-12-19 12:49] LABS: Hemoglobin A1C 5.7 % (<5.7)
[2022-12-19 12:51] LABS: Calculated LDL 119 mg/dL (<100); Cholesterol 205 mg/dL (<200); HDL Cholesterol 51 mg/dL (40-60); Triglyceride 176 mg/dL (<150)
== END 2022-12-19 02:34 | disposition home or self-care (01) ==
LOC: LOS 02:33
PROVIDERS: PCP Family Medicine; Visit Provider Family Medicine
DX: E78.5 Hyperlipidemia, unspecified (principal); R73.9 Hyperglycemia, unspecified
CPT/HCPCS: 36415; 80061; 83036

== ENCOUNTER 2024-02-27 05:02 | Outpatient (CLI) | payer BC, SELFPAY ==
[2024-02-27 16:51] LABS: HCT 44.5 % (40.0-50.0); HGB 15.3 g/dL (13.5-17.5); MCH 29.9 pg (27.0-33.0); MCHC 34.4 % (32.0-36.0); MCV 87 fL (80-95); MPV 9.8 fL (8.0-11.0); Platelet Count 269 10^3/uL (130-400); RBC 5.12 10^6/uL (4.36-5.78); RDW 12.8 % (11.8-14.1); RDW-SD 40.4 fL; WBC 9.52 10^3/uL (4.4-10.8)
[2024-02-27 18:20] LABS: ALT 54 U/L (16-63); AST 29 U/L (15-37); Albumin 3.8 g/dL (3.4-5.0); Alkaline Phosphatase 87 U/L (46-116); Anion Gap 10.2 mmol/L (3-11); BUN 18 mg/dL (7-18); Bilirubin, Total 0.4 mg/dL (0.2-1.0); CO2 29.8 mmol/L (21.0-32.0); CREATININE 1.1 mg/dL (0.70-1.30); Calcium 9.3 mg/dL (8.5-10.1); Calculated LDL 83 mg/dL (<100); Chloride 102 mmol/L (98-107); Cholesterol 189 mg/dL (<200); Glucose 127 mg/dL (74-106); HDL Cholesterol 41 mg/dL (40-60); Sodium 142 mmol/L (136-145); Total Protein 7.9 g/dL (6.4-8.2); Triglyceride 325 mg/dL (<150)
[2024-02-28 18:29] LABS: PSA, Screening 3.2 ng/mL (<=3.5)
== END 2024-02-27 05:03 | disposition home or self-care (01) ==
LOC: LBO 05:02
PROVIDERS: PCP Family Medicine; Visit Provider Family Medicine
DX: R19.5 Other fecal abnormalities (principal); E78.5 Hyperlipidemia, unspecified; E11.51 Type 2 diabetes mellitus with diabetic peripheral angiopathy without gangrene; Z12.5 Encounter for screening for malignant neoplasm of prostate
CPT/HCPCS: 36415; 80053; 80061; 84153; 85027; 83036

== ENCOUNTER 2024-07-27 11:22 | Day surgery (SDC) | payer BC, SELFPAY ==
--- NOTE | 2024-07-26 11:49 | PDOC.DSDIS_ITS ---
Date of service: 07/27/24 Time of Service: 14:07 Discharge Plan Disposition Patient Disposition: Home Condition: Good Discharge Details Reason For Visit: screening colonoscopy Attending Provider: Cristiano Inteirano Primary Care Provider: Yamil Abrams Home Meds and New Rx's Prescriptions: Continued aspirin 81 mg tablet,delayed release (DR/EC) 81 mg PO DAILY rosuvastatin 40 mg tablet 40 mg PO DAILY Qty: 90 3RF losartan 50 mg tablet 50 mg PO DAILY Qty: 90 3RF Rx Instructions: dose increase 08/14/23 Discontinued bisacodyl [Dulcolax (bisacodyl)] 5 mg tablet,delayed release (DR/EC) 5 mg PO ONCE Qty: 4 0RF Rx Instructions: Colonoscopy Bowel Prep- Per Instructions polyethylene glycol 3350 17 gram/dose powder 238 g PO ONCE Qty: 238 0RF Rx Instructions: Colonoscopy Bowel Prep- Per Instructions Discharge Instructions Instructions: Diverticulosis Additional Instructions: Darrius, I appreciate your patience today, and I hope you are comfortable during the procedure. Everything went very smoothly during your colonoscopy. Your prep was excellent and I could see everything fine. You do have some diverticulosis. This occurs when the muscular part of the colon wall weekends as we age a bit causing small pockets to form. These can get infected or i nflamed, and that is typically experienced as sharp pain usually on the left lower side of the abdomen. Those flareups are known as diverticulitis, and is often times treated with antibiotics. I hope you are is never bother you. I have attached a little bit of information here regarding typical approaches to diverticular disease. Essentially, I suggest that you have a diet that is well-balanced and rich in fiber. You should stay well-hydrated, and avoid any symptoms of constipation. Based on the type of polyps that you had removed during your previous colonoscopy, I do recommend another 5-year interval. If that colonoscopy is negative, then you could go back to a 10-year screening plan. If you have any questions at all, please do not hesitate to call or ask at any time. 1. If tolerated, consume a soft, low fiber diet for 1-2 days. 2[address] Do not drive, drink alcohol, operate machinery, make critical decisions, or do activities that require coordination or balance for 24 hours. 3. Because air was put into your colon during the procedure, expelling air from your rectum (passing gas or farting) is normal. 4. You may not have a bowel movement for 1-3 days because of the colonoscopy prep. This is normal. 5. Go directly to the emergency room if you notice any of the following: Develop chills (warm to touch), or if you have a thermometer and your temperature is above 101 Difficulty breathing or difficultly swallowing Persistent vomiting Severe abdominal pain, other than gas cramps Severe chest pain Black, tarry stools Any bleeding ? exceeding one tablespoon 6. Call your physician if the site where your intravenous was started becomes red, swollen, painful, and warm to touch. 7. Your physician has reviewed your pre-procedure medications. Please continue to take those medications as previously ordered. You will be given specific information/education regarding any changes to your medications before leaving. Stand Alone Forms: Anesthesia Discharge Inst., [place] ([facility]) Activity:: Activity as Tolerated Diet:: As Tolerated Discharge Orders Discharge Orders: Discharge Order (Routine); Ordered 07/26/24 Ordered By: Cristiano Interiano DS: Diagnosis Discharge Diagnosis (1) Encounter for screening colonoscopy: Status: Acute Asessment and Plan: Negative screening colonoscopy today, recommend another 5-year interval
--- NOTE | 2024-07-26 11:50 | COLE_ITS ---
Date of service: 07/27/24 Time of Service: 14:10 Colonoscopy Report Date of procedure: 07/27/24 Pre-op diagnosis general: screening colonoscopy Post-op diagnosis procedure note: other (Diverticulosis) Procedure: colonoscopy Surgeon: Cristiano Interiano Anesthesia Type: General:No Airway Estimated blood loss (mL): 0 Pathology: none sent Complications: None Disposition: same day Indications: Darrius is 59 years old with a history of adenomatous polyps. He needs his next screening colonoscopy Prep: Miralax/Dulcolax Procedure Start Time: 13:55 Procedure End Time: 13:53 Retraction Time: 9 Findings: Sigmoid diverticulosis Procedure Description: After the induction of monitored anesthetic care, and with the patient in left lateral decubitus position, I began by performing an external anorectal exam.? Perineum and skin were normal, as was the anal verge.? There was no evidence of external hemorrhoids.? Next, I performed a digital rectal exam.? I did not appreciate any abnormal findings.? Next, I advanced a colonoscope into the rec yanelis vault.? I performed retroflexion.? This appeared normal.? Using insufflation, I then advanced the colonoscope beyond the rectal folds and into the sigmoid colon before advancing towards the cecum.? The scope was noted to be in the cecum by identification of the ileocecal valve and appendiceal orifice.? I then began withdrawing the colonoscope using repeated irrigation as necessary for full evaluation of the colonic mucosa. There was some sigmoid diverticulosis. once the scope was withdrawn to the level of the rectum, great care was taken to examine portions of the rectal folds.? Finally, the scope was withdrawn and the patient was brought to the same-day surgery recovery unit as the anesthetic wore off. ?The findings and instructions were shared with the patient prior to discharge. [place] Bowel Prep [place] Bowel Prep Right Colon: 3 Left Colon: 3 Transverse Colon: 3 Total Score: 9
[2024-07-27 11:29] VITALS: BP 144/89; PULSE 65; RESP 18; TEMP 36.3; O2SAT 96
[2024-07-27] MEDS: Lactated Ringers 1,000 ML 80 ML IV (12:15)
--- NOTE | 2024-07-27 12:27 | W.ANESPRE ---
General Info Date of Service Date Performed: 07/27/24 Height: 5 ft 6 in Weight: 90.5 kg Body Mass Index (BMI): 32.2 Surgical Procedure: Operation Date: 07/27/24 13:05 Proposed Procedure Side Surgeon marck Interiano MD Meds Allergies and Home Medications Allergies Allergy/AdvReac Type Severity Reaction Status Date / Time No Known Allergies Allergy Verified 07/27/24 11:39 Home Medication ?Medication ?Instructions ?Recorded aspirin 81 mg tablet,delayed 81 mg PO DAILY 12/04/22 release losartan 50 mg tablet 50 mg PO DAILY #90 tabs 10/07/23 rosuvastatin 40 mg tablet 40 mg PO DAILY #90 tabs 05/14/24 Current Visit Medications: Current Medications Generic Name Dose Route Start Last Admin Trade Name Freq PRN Reason Stop Dose Admin Ringer's Solution 1,000 mls @ 80 mls/hr 07/27/24 06:00 07/27/24 12:15 IV 07/27/24 23:59 80 mls/hr INFUSION FELICIA Administration IV Miscellaneous Supplies 1 each 07/27/24 06:00 Iv Access IV 07/27/24 23:59 DIRECTED FELICIA Ondansetron HCl 4 mg 07/26/24 11:52 Ondansetron 4 Mg/2 Ml Vial IVP 08/25/24 11:51 Q4H PRN PRN Nausea / Vomiting Sodium Chloride 0 ml 07/27/24 06:00 Normal Saline Flush 10 Ml Syr IV 07/27/24 23:59 PRN PRN Sodium Chloride 0 ml 07/27/24 06:00 Normal Saline 10 Ml Vial IJ 07/27/24 23:59 DIRECTED PRN Sterile Water 0 ml 07/27/24 06:00 Water,Injection,Sterile 10 Ml Vial IJ 07/27/24 23:59 DIRECTED PRN PFSH Active Problems Active Problems: Problem Status Onset Code Encounter for screening colonoscopy Acute Z12.11 Prediabetes Acute R73.03 Loose stools Acute R19.5 Elevated blood pressure reading without diagnosis of hypertension Acute R03.0 History of total left knee replacement (TKR) Acute 08/23/21 Z96.652 Diarrhea Acute 02/22/14 R19.7 Elev transaminase/LDH Acute 09/26/06 R74.0 Hyperlipidemia Acute E78.5 Joint pain Acute M25.50 Non-alcoholic fatty liver disease Acute 08/27/07 K76.0 Tobacco use disorder Acute F17.200 Tubular adenoma of colon Acute 02/18/17 D12.6 Borderline high blood pressure Chronic R03.0 Status post arthroscopy of left knee Acute Z98.890 History of appendectomy Acute Z90.49 Brief depressive adjustment reaction Acute F43.21 Throat infection Acute J02.9 Primary osteoarthritis of left knee Acute M17.12 Medical History Medical History Hyperlipidemia Non-alcoholic fatty liver disease Tobacco dependence Surgical History Surgical History S/P left knee arthroscopy Colonoscopy - MAC (02/18/17) Appendectomy Tobacco Smoking/Tobacco Use Status: Current every day Tobacco Type: smokeless tobacco Alcohol Alcohol Intake: current Alcohol intake frequency: a few times a month Substance Use Substance use: Occasionally Substance use type: marijuana Vital Signs and Lab Results Vital Signs Most Recent Vital Signs in EMR: Most Recent Vital Signs Temp Pulse Resp BP Pulse Ox 36.3 C L 65 18 144/89 H 96 07/27/24 11:29 07/27/24 11:29 07/27/24 11:29 07/27/24 11:29 07/27/24 11:29 Lab Results Blood Type / Crossmatch: No Data to Display Complete Blood Count: No Data to Display Complete Metabolic Panel: No Data to Display Liver Function Panel: No Data to Display Coagulation Panel: No Data to Display Cardiac Panel: No Data to Display Arterial Blood Gas: No Data to Display Venous Blood Gas: No Data to Display Pancreas Panel: No Data to Display Thyroid Panel: No Data to Display Infectious Disease: No Data to Display Blood Cultures: No Data to Display Toxicology Panel: No Data to Display Imaging and Studies Imaging and Studies Study information below may be from another EMR and interpreted by another provider. Please see original notes in EMR for more complete details. Stress Test Summary: 10/17/2018: Impressions: Normal study after maximal exercise. Summary: 1. Stress ECG conclusions: The stress ECG is negative. 2. Stress: The target heart rate was achieved. There is a normal resting blood pressure with an appropriate response to stress. The patient experienced no chest pain during stress. Exercise capacity is average for age. Anesthesia Assessment and Plan Anesthesia History Personal History: No History of Anesthesia Complications Family History: No Family History of Anesthesia Complications Exercise Tolerance Exercise Tolerance: Metabolic Equivalents>4 Pertinent Negatives Pertinent Negatives: No Symptoms of GERD Cardiac & Pulmonary Exam Cardiac Exam: Normal S1/S2 Heart Sounds Pulmonary Exam: Clear Bilateral Breath Sounds Implantable Cardiac Device Does patient have a Pacemaker or an ICD?: No Airway Exam Known Difficult Airway: No Mallampati Class: 3 Mouth Opening: Normal (> 3cm) Thyromental Distance: Greater than 3 cm Neck Range of Motion: Full ROM Neck Circumference: Normal Teeth Condition: Normal Dentition Airway Comments: Some teeth pulled. Denies any currently broken ASA Classification ASA Score: ASA 2 Emergency Case?: No NPO Status NPO Status: NPO Clears >2 hours, Solids >8 hours Anesthesia Plan Resuscitation Status: Full Code Anesthesia Technique: General Anesthesia Airway Planned: Natural Airway Monitors Used: Standard Monitors Preoperative Comments:: Was drinking water up until 1130. Will hold case for 1330 start to allow 2 hour NPO window for clear liquids
[2024-07-27 12:48] VITALS: BMI 32.2
--- NOTE | 2024-07-27 13:22 | W.PREOPHP ---
Assessment and Plan Assessment and plan (1) Encounter for screening colonoscopy: Status: Acute Assessment and plan: I reviewed the plan for screening colonoscopy which to me today, as well as the nature of the procedure including the risks and the benefits. He seems to have very good understanding of all this, he was able to sign consent. We can proceed with colonoscopy as scheduled. History of Present Illness History of Present Illness Chief Complaint: Screening colonoscopy Narrative: 59 y/o male with history of HLD and HTN presents for colonoscopy screening pre-op. Updating his H&P. He denies any changes in his health, hospital admissions or ER visits since last seen. His last screening was in 2017 , which was remarkable for tubular adenomatous polyps. He denies a family history of colon cancer. He denies any changes in bowel habits describing santos this BMs are frequently loose. Denies bloody or black tarry stools, abdominal pain, diarrhea or constipation. He denies constitutional symptoms. He denies chest pain, palpitations, dyspnea or dyspnea with exertion. He denies prior history or family history of adverse reactions or complications with anesthesia. The patient denies any history of stroke, NC, seizures, bleeding or clotting disorders. He has metal implanted in his left knee. Since his last office encounter there have been no significant interval changes to history or physical. PFSH All Active Problems Encounter for screening colonoscopy (Acute) Prediabetes (Acute) Loose stools (Acute) Elevated blood pressure reading without diagnosis of hypertension (Acute) History of total left knee replacement (TKR) (Acute 08/23/21) Diarrhea (Acute 02/22/14) Elev transaminase/LDH (Acute 09/26/06) Hyperlipidemia (Acute) Joint pain (Acute) Non-alcoholic fatty liver disease (Acute 08/27/07) Tobacco use disorder (Acute) Tubular adenoma of colon (Acute 02/18/17) Borderline high blood pressure (Chronic) Status post arthroscopy of left knee (Acute) History of appendectomy (Acute) Brief depressive adjustment reaction (Acute) Throat infection (Acute) Primary osteoarthritis of left knee (Acute) Medical History Hyperlipidemia Non-alcoholic fatty liver disease Tobacco dependence Surgical History S/P left knee arthroscopy Colonoscopy - MAC (02/18/17) Appendectomy Family History Mother Hyperlipidemia Father Hyperlipidemia Sister No problems noted. Sister No problems noted. Sister No problems noted. Grandfather No problems noted. Grandfather No problems noted. Grandmother No problems noted. Grandmother No problems noted. Son No problems noted. Daughter No problems noted. Daughter No problems noted. Daughter No problems noted. Daughter Neoplasm Social History (Updated 06/19/24 @ 12:43 by ELLA Rodriguez) Smoking/Tobacco Use Status: Current every day Tobacco Type: smokeless tobacco Smoking risk assessment performed?: Yes Alcohol Intake: current Alcohol Intake frequency: a few times a month Drug use: Occasionally Substance use type: marijuana Household members: spouse Housing: house Communication Needs: None Do you need help understanding health information?: Never Pets and animals: Yes Pets and animals: cat(s) and dog(s) Sexually active: Yes Do you think of yourself as: straight/heterosexual Current gender identity: male What is your relationship status?: How often do you talk on the phone with friends or family?: three or more times per week How often do you get together with friends or relatives?: three or more times per week How often do you attend jainism or jewish services?: decline to answer Do you belong to any clubs or organized social groups?: no Panel score (0-1 are the most socially isolated patients): 2 What type of physical activity do you participate in: other Details: Work Ruby/Rastafarian: No preference Special ruby needs: No Seatbelt use: sometimes Helmet use: Yes Helmet use: always Drive 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 Do you feel safe at home: Yes Do you feel safe in your relationship?: Yes Meds Allergies and Home Medications Allergies Allergy/AdvReac Type Severity Reaction Status Date / Time No Known Allergies Allergy Verified 07/27/24 11:39 Home Medications ?Medication ?Instructions ?Recorded ?Confirmed ?Type aspirin 81 mg tablet,delayed 81 mg PO DAILY 12/04/22 07/24/24 History release losartan 50 mg tablet 50 mg PO DAILY #90 tabs 10/07/23 07/27/24 Rx rosuvastatin 40 mg tablet 40 mg PO DAILY #90 tabs 05/14/24 07/27/24 Rx Exam Const General: cooperative, healthy appearing and not in acute distress Neck Neck: normal visual inspection, no lymphadenopathy and supple Resp Effort & Inspection: normal respiratory effort Auscultation: clear to auscultation bilaterally Cardio Jugular venous pressure: no JVD Rate: regular rate Rhythm: regular rhythm Heart Sounds: S1 normal and S2 normal GI Inspection: normal to inspection Palpation: soft, no guarding, no hernias and nontender Percussion: normal to percussion Auscultation: normal bowel sounds Neuro General: patient alert, patient awake and patient oriented x3 Psych Appearance: grossly normal Results Last Vital Signs Temp 97.3 F L 07/27/24 11:29 Pulse 65 07/27/24 11:29 Resp 18 07/27/24 11:29 BP 144/89 H 07/27/24 11:29 Pulse Ox 96 07/27/24 11:29
[2024-07-27 13:57] VITALS: BP 131/79; PULSE 73; RESP 16; TEMP 36.2; O2SAT 95
[2024-07-27 14:22] VITALS: BP 142/81; PULSE 69; RESP 18; TEMP 36.5; O2SAT 96
--- NOTE | 2024-07-27 15:25 | W.ANESPOSTOP ---
Postoperative Evaluation Date, Time and Location Date Performed: 07/27/24 Time Performed: 14:00 Patient Location: Day Surgery Unit Vital Signs Most Recent Imported Vital Signs: Most Recent Vital Signs Temp Pulse Resp BP Pulse Ox 36.5 C 69 18 142/81 H 96 07/27/24 14:22 07/27/24 14:22 07/27/24 14:22 07/27/24 14:22 07/27/24 14:22 Pain Score Most Recent Pain Score: Most Recent Pain Score Pain Level 0 07/27/24 14:22 Assessment Mental Status: Awake (Alert & Oriented to Patient Baseline) Airway and Respiratory Function: Patent airway with normal (patient baseline) respiratory exam Cardiovascular Function: Hemodynamically Stable Hydration Status: Adequately Hydrated Nausea & Vomiting: No Nausea or Vomiting Pain: Pt. Denies Any Pain Peripheral Nerve Block: Patient did not receive a nerve block
== END 2024-07-27 14:50 | disposition home or self-care (01) ==
PROVIDERS: PCP Family Medicine; Visit Provider Surgery
PROC: 0DJD8ZZ Inspection of Lower Intestinal Tract, Via Natural or Artificial Opening Endoscopic (ICD-10-PCS; CPT 45378; principal; 2024-07-27 13:00)
DX: Z12.11 Encounter for screening for malignant neoplasm of colon (principal); K57.30 Diverticulosis of large intestine without perforation or abscess without bleeding
CPT/HCPCS: 45378; J2704

== ENCOUNTER 2024-08-12 05:53 | Emergency (ER) | payer BC, SELFPAY ==
[2024-08-12] VITALS (29 sets, daily range): BP systolic 136–198; BP diastolic 76–93; PULSE 56–70; RESP 15–27; TEMP 35.8; O2SAT 91–100
--- NOTE | 2024-08-12 05:45 | RT.EKG_ITS ---
APPROVED REPORT Exam: Resting ECG Reason for Exam: light headedness Patient Location: E HR:67 bpm ECG Measurements Heart Rate 67 AXIS IL 153 P -10 QRSd 108 QRS 44 QT 450 T 35 QTc 476 Conclusion Sinus rhythm...normal P axis, V-rate 60- 99 Normal [place] Normal Electrocardiogram
--- NOTE | 2024-08-12 05:58 | ED.GENADUL_ITS ---
Discharge Plan Discharge Details Chief Complaint: Dizzy/Sync Primary Care Provider: Yamil Abrams ED Provider: Eduardo Fortune [place] Meds and New Rx's Prescriptions: No Action aspirin 81 mg tablet,delayed release (DR/EC) 81 mg PO DAILY rosuvastatin 40 mg tablet 40 mg PO DAILY Qty: 90 3RF losartan 50 mg tablet 50 mg PO DAILY Qty: 90 3RF Rx Instructions: dose increase 08/14/23 HPI General Mode of arrival: wheelchair . Date/Time Provider Initiated Documentation: 08/12/24 05:58 . Limitations to Documentation: no limitations . Information obtained by: patient, RN notes reviewed and old records reviewed . HPI Narrative: Patient presents to ED after waking up with vertigo, difficulty ambulating, recurrent episodes of vomiting. Patient denies having headache or neck pain. Does report vision change but not double vision. Denies any numbness or weakness. Denies any recent illness, tinnitus, hearing change. Was very sweaty at home and felt generally unwell. Denies having any type of chest pain or pressure. Denies any shortness of breath. Has had a few episodes of mild symptoms like this over the last day or 2. This morning persistent and feels dizzy even just lying here on the stretcher. Related Data Home Medications ?Medication ?Instructions ?Recorded ?Confirmed aspirin 81 mg tablet,delayed 81 mg PO DAILY 12/04/22 08/12/24 release losartan 50 mg tablet 50 mg PO DAILY #90 tabs 10/07/23 08/12/24 rosuvastatin 40 mg tablet 40 mg PO DAILY #90 tabs 05/14/24 08/12/24 Previous Rx's ?Medication ?Instructions ?Recorded losartan 50 mg tablet 50 mg PO DAILY #90 tabs 10/07/23 rosuvastatin 40 mg tablet 40 mg PO DAILY #90 tabs 05/14/24 Allergies Allergy/AdvReac Type Severity Reaction Status Date / Time No Known Allergies Allergy Verified 08/12/24 06:04 Review of Systems Narrative: Per HPI Exam Narrative Exam Narrative: Const: WDWN male in NAD. VS per triage. HEENT: NC/AT. Normal facial exam. Eyes: PERRL and EOMI. Rotary nystagmus with right lateral gaze. Neck: Supple. Trachea midline. Lungs: Normal respiratory effort. Lungs are clear. Cor: RRR without murmur. Good radial pulses. GI: Soft/ND/NT. Neuro: A+O x 3. Normal speech, mentation. Cranial nerves II - XII grossly intact. No gross motor or sensory deficit. Ext: No C/C/E. Medical Decision Making Patient presenting to ED with vertigo associated with vomiting, unsteady gait, rotary nystagmus. He is vertiginous just lying on the stretcher here. His EKG per my read is normal with no ST changes. He is otherwise neurologically intact with NIH score of 0. IV is in place. He is given ondansetron for his nausea and meclizine for the vertigo. Given his gait disturbance, complaint of visual disturbance, rotary nystagmus will initiate CVA workup. Laboratory studies sent. CTA of the head and neck ordered. 07:10 - Patient is feeling better but is still dizzy especially if he moves his head. Laboratory studies overall are reassuring. Blood sugar is somewhat elevated up to 185 with a very mild anion gap at 13. I have added on a hgb1AC. CT head and CTA head and neck preliminary read by radiology is negative for evidence of a stroke, stenosis, occlusion, dissection. Given his age and risk factors as well as persistent vertigo will plan MRI brain without to evaluate for possible acute posterior stroke. I have discussed current findings as well as plan for MRI with patient and family. Patient is signed out to oncoming ED physician, Dr. Rodríguez pending MRI. Medical Records Medical records reviewed: Yes I reviewed the patient's medical records. Medical records narrative: PCP clinic visits Lab Data Lab results reviewed: Yes I reviewed the patient's lab results. Lab results narrative: see MDM ECG Data Attestation: I personally reviewed and interpreted this ECG (s) as follows: Interpretation: normal PFSH All Active Problems Prediabetes (Acute) Loose stools (Acute) Elevated blood pressure reading without diagnosis of hypertension (Acute) Diarrhea (Acute 02/22/14) Elev transaminase/LDH (Acute 09/26/06) Joint pain (Acute) Non-alcoholic fatty liver disease (Acute 08/27/07) Tobacco use disorder (Acute) Tubular adenoma of colon (Acute 02/18/17) Status post arthroscopy of left knee (Acute) History of appendectomy (Acute) Brief depressive adjustment reaction (Acute) Primary osteoarthritis of left knee (Acute) Medical History Borderline high blood pressure Hyperlipidemia Non-alcoholic fatty liver disease Tobacco dependence Surgical History History of total left knee replacement (TKR) (08/23/21) S/P left knee arthroscopy Colonoscopy - MAC (06/2024) Appendectomy Family History Mother Hyperlipidemia Father Hyperlipidemia Sister No problems noted. Sister No problems noted. Sister No problems noted. Grandfather No problems noted. Grandfather No problems noted. Grandmother No problems noted. Grandmother No problems noted. Son No problems noted. Daughter No problems noted. Daughter No problems noted. Daughter No problems noted. Daughter Neoplasm Social History Smoking/Tobacco Use Status: Current every day Tobacco Type: smokeless tobacco Smoking risk assessment performed?: Yes Alcohol Intake: current Alcohol Intake frequency: a few times a week Alcohol type: beer Drug use: Occasionally Substance use type: marijuana Household members: spouse Housing: house Communication Needs: None Do you need help understanding health information?: Never Pets and animals: Yes Pets and animals: cat(s) and dog(s) Sexually active: Yes Do you think of yourself as: straight/heterosexual Current gender identity: male What is your relationship status?: How often do you talk on the phone with friends or family?: three or more times per week How often do you get together with friends or relatives?: three or more times per week How often do you attend jewish or yarsani services?: decline to answer Do you belong to any clubs or organized social groups?: no Panel score (0-1 are the most socially isolated patients): 2 What type of physical activity do you participate in: other Details: Work Ruby/Scientology: No preference Special ruby needs: No Seatbelt use: sometimes Helmet use: Yes Helmet use: always Drive intox or ride w/intox hyster driver: No Do you feel safe at home: Yes Do you feel safe in your relationship?: Yes
--- NOTE | 2024-08-12 06:00 | DI.CT_ITS ---
Exam(s) CT BRAIN NECK CTA EXAM: CT BRAIN NECK CTA CLINICAL HISTORY: Vertigo, unsteady gait, vision disturbance. TECHNIQUE: Imaging Protocol: Axial CT angiography was performed with multi-slice acquisition and mu lti-planar and/or 3D reconstructions. CONTRAST MATERIAL: Intravenous: Omnipaque 350 contrast volume:70 mL COMPARISON: No exams were available for comparison FINDINGS: CT Head W/O and W: Ventricles and Extra axial spaces: Normal in size and morphology for the patient's age. Hemorrhage: None. Cerebral parenchyma: No evidence of an acute territorial infarct. No mass effect is identified. Midline shift: None. Brainstem/Cerebellum: Normal. Calvarium: Normal. Visualized Paranasal sinuses/Mastoids: There is mild mucosal thickening in the maxillary sinuses. Th e remaining visualized paranasal sinuses are clear. No air-fluid levels are present. Soft Tissues: Unremarkable. Enhancement: Unremarkable. CTA Neck W: Common Carotid: Right: No dissection, occlusion or significant stenosis. Mild atherosclerotic calcification in the b ulb. Left: No dissection, occlusion or significant stenosis. Mild atherosclerotic calcification in the bu lb. External Carotid: Right: No occlusion or significant stenosis. Left: No occlusion or significant stenosis. Internal Carotid: Right: No dissection, occlusion or significant stenosis. Left: No dissection, occlusion or significant stenosis. Vertebral Artery: Right: No dissection, occlusion or significant stenosis. Left: No dissection, occlusion or significant stenosis. Lung Apices: No focal infiltrates are seen. Bones: Within normal limits for the patient's age. Soft Tissues: Normal. Thyroid gland: Unremarkable. CTA Brain W: Internal Carotid Arteries: Mild atherosclerotic calcification is present. No aneurysm, occlusion or significant stenosis is seen. Anterior Cerebral Arteries: Right: No aneurysm, occlusion or significant stenosis. Left: No aneurysm, occlusion or significant stenosis. Middle Cerebral Arteries: Right: No aneurysm, occlusion or significant stenosis. Left: No aneurysm, occlusion or significant stenosis. Posterior Cerebral Arteries: Posterior cerebral arteries arise predominantly from the posterior commu nicating arteries. Right: No aneurysm, occlusion or significant stenosis. Left: No aneurysm, occlusion or significant stenosis. Vertebral Arteries: Right: No aneurysm, occlusion or significant stenosis. Left: No aneurysm, occlusion or significant stenosis. Basilar Artery: No aneurysm, occlusion or significant stenosis. IMPRESSION: 1. No large vessel occlusion or significant stenosis on the CT angiography of the head. 2. No acute intracranial process. 3. No occlusion or significant stenosis on the CT angiography of the neck. RADIATION DOSE DELIVERED: 2,238.25mGy.cm Total DLP DATA REPOSITORY: All CT scans at this facility are submitted to the National Radiology Data Registry (NRDR) Dose Index Registry (DIR) with the [employer] (ACR). RADIATION OPTIMIZATION: All CT scans at this facility use at least one of these dose optimization te chniques: automated exposure control; mA and/or kV adjustment per patient size (includes targeted exa ms where dose is matched to clinical indication); or iterative reconstruction.
[2024-08-12] MEDS: Meclizine 25 MG TAB PO (06:16)
[2024-08-12] MEDS: Ondansetron 4 MG/2 ML VIAL IVP (06:16)
[2024-08-12] MEDS: Normal Saline - Diluent 50 ML VIAL IJ (06:21)
[2024-08-12] MEDS: Omnipaque 350 MG/ML 100 ML BTL IJ (06:21)
[2024-08-12] MEDS: Normal Saline Flush 10 ML SYR IVP (06:22)
[2024-08-12 06:36] LABS: Abs Immature Grans 0.04 10^3/uL (0.0-0.06); Absolute Basophil Count 0.08 10^3/uL (0.0-0.2); Absolute Eosinophil Count 0.16 10^3/uL (0.0-0.7); Absolute Lymphocyte Count 2.97 10^3/uL (1.2-3.4); Absolute Monocyte Count 0.83 10^3/uL (0.1-0.8); Basophils % 0.9 %; Eosinophils % 1.8 %; HCT 45.9 % (40.0-50.0); HGB 15.9 g/dL (13.5-17.5); Immature Grans % 0.5 %; Lymphocytes % 33.8 %; MCH 30.5 pg (27.0-33.0); MCHC 34.6 % (32.0-36.0); MCV 88 fL (80-95); MPV 10.2 fL (8.0-11.0); Monocytes % 9.5 %; Neutrophils % 53.5 %; Platelet Count 244 10^3/uL (130-400); RBC 5.21 10^6/uL (4.36-5.78); RDW-SD 41.7 fL; WBC 8.78 10^3/uL (4.4-10.8)
[2024-08-12 06:50] LABS: Prothrombin Time 9.9 sec (9.1-11.1)
[2024-08-12 06:54] LABS: ALT 69 U/L (16-63); AST 36 U/L (15-37); Albumin 3.7 g/dL (3.4-5.0); Alkaline Phosphatase 93 U/L (46-116); BUN 15 mg/dL (7-18); Bilirubin, Total 0.44 mg/dL (0.2-1.0); CREATININE 1.1 mg/dL (0.70-1.30); Chloride 104 mmol/L (98-107); Estimated GFR 77.81 (mL/min/1.73m2); Glucose 185 mg/dL (74-106); Sodium 142 mmol/L (136-145); Total Protein 7.8 g/dL (6.4-8.2)
--- NOTE | 2024-08-12 07:00 | DI.MRI_ITS ---
Exam(s) MR BRAIN WO EXAM: MR BRAIN WO CLINICAL HISTORY: vertigo, gait disturbance TECHNIQUE: Multiplanar multisequence MRI of the brain was performed. COMPARISON: CT CT BRAIN NECK CTA from 08/12/2024 FINDINGS: A patient motion VENTRICLES AND EXTRA AXIAL SPACES: Normal in size and morphology for the patient's age. MIDLINE SHIFT: None. CEREBRAL PARENCHYMA: No focus of restricted diffusion to suggest acute infarct. No space-occupying le sandrita identified. There are few foci of hyperintense signal seen in the white matter on the FLAIR and T2 weighted images likely reflecting early small vessel ischemic disease. HEMORRHAGE: None. BRAINSTEM/CEREBELLUM: Normal. CALVARIUM: Normal. VISUALIZED PARANASAL SINUSES/MASTOIDS:Clear. APACHE OF CAMPOS: Normal flow void. PITUITARY GLAND: Unremarkable. OTHER FINDINGS: None. IMPRESSION: No evidence of an acute infarct. DATA REPOSITORY:
--- NOTE | 2024-08-12 07:02 | DI.VRAD_ITS ---
PROCEDURE INFORMATION: Exam: CTA Head Without And With Contrast, Arteriography Exam date and time: 08/12/2024 6:22 AM Age: 59 years old Clinical indication: Stroke-like symptoms; Dizziness/giddiness and visual disturbance; Additional info: Vertigo, unsteady gait, vision disturbance TECHNIQUE: Imaging protocol: Computed tomographic angiography of the head without and with contrast. Exam focused on the arteries. 3D rendering (Not supervised by radiologist): MIP and/or 3D reconstructed images were created by the technologist. Radiation optimization: All CT scans at this facility use at least one of these dose optimization techniques: automated exposure control; mA and/or kV adjustment per patient size (includes targeted exams where dose is matched to clinical indication); or iterative reconstruction. Contrast material: OMNIPAQUE 350; Contrast volume: 70 ml; Contrast route: INTRAVENOUS (IV); Other technique: STROKE PROTOCOL was implemented. COMPARISON: No relevant prior studies available. FINDINGS: ANTERIOR CIRCULATION: Right internal carotid artery: Intracranial segment is patent with no significant stenosis or occlusion. No aneurysm. Right middle cerebral artery: No occlusion or significant stenosis. No aneurysm. Right anterior cerebral artery: No occlusion or significant stenosis. No aneurysm. Left internal carotid artery: Intracranial segment is patent with no significant stenosis. No aneurysm. Left middle cerebral artery: No occlusion or significant stenosis. No aneurysm. Left anterior cerebral artery: No occlusion or significant stenosis. No aneurysm. POSTERIOR CIRCULATION: Right vertebral artery: No occlusion or significant stenosis. No aneurysm. Left vertebral artery: No occlusion or significant stenosis. No aneurysm. Basilar artery: No occlusion or significant stenosis. No aneurysm. Right posterior cerebral artery: No occlusion or significant stenosis. No aneurysm. Left posterior cerebral artery: No occlusion or significant stenosis. No aneurysm. HEAD: Brain: Normal. No hemorrhage. Unremarkable white matter. No mass effect. Cerebral ventricles: Normal. No ventriculomegaly. Bones: Unremarkable. No acute fracture. Paranasal sinuses: Visualized sinuses are normal. No fluid levels. Mastoid air cells: Visualized mastoids are normal. No mastoid effusion. Soft tissues: Unremarkable. IMPRESSION: 1. No large vessel occlusion. 2. Unremarkable CT head. ASSESSMENT: ASPECTS (Hiral Stroke Program Early CT Score) is 10. PROCEDURE INFORMATION: Exam: CTA Neck Without And With Contrast Exam date and time: 08/12/2024 6:22 AM Age: 59 years old Clinical indication: Stroke-like symptoms; Dizziness/giddiness and visual disturbance; Additional info: Vertigo, unsteady gait, vision disturbance TECHNIQUE: Imaging protocol: Computed tomographic angiography of the neck without and with contrast. Exam focused on the cervical segments of the vasculature. 3D rendering (Not supervised by radiologist): MIP and/or 3D reconstructed images were created by the technologist. Radiation optimization: All CT scans at this facility use at least one of these dose optimization techniques: automated exposure control; mA and/or kV adjustment per patient size (includes targeted exams where dose is matched to clinical indication); or iterative reconstruction. Contrast material: OMNIPAQUE 350; Contrast volume: 70 ml; Contrast route: INTRAVENOUS (IV); COMPARISON: No relevant prior studies available. FINDINGS: Right common carotid artery: No stenosis. No dissection or occlusion. Right internal carotid artery: No stenosis of the extracranial segment. No dissection or occlusion. Right external carotid artery: No occlusion or stenosis of the origin. Left common carotid artery: No stenosis. No dissection or occlusion. Left internal carotid artery: No stenosis of the extracranial segment. No dissection or occlusion. Left external carotid artery: No occlusion or stenosis of the origin. Right vertebral artery: No stenosis. No dissection or occlusion. Left vertebral artery: No stenosis. No dissection or occlusion. Soft tissues: Normal. No significant soft tissue swelling. Bones/joints: No acute fracture. IMPRESSION: No stenosis or occlusion. REFERENCES: NASCET CRITERIA. The degree of stenosis in the cervical segment of the internal carotid artery is based on NASCET criteria. Normal is no stenosis. Mild is less than 50% stenosis. Moderate is 50-69% stenosis. Severe is 70% to 99% stenosis. Total occlusion is no detectable patent lumen. Dictated and Authenticated by: Elizabeth Gray MD. Ordering:ELIU Clark MD
--- NOTE | 2024-08-12 07:32 | W.EDPROG ---
Date of service: 08/12/24 Time of Service: 07:32 Medical Decision Making I received signout on this 59-year-old male with history of prediabetes in the emergency department setting of dizziness that began at 4 AM this morning. Patient had a negative CT head and reassuring angiogram. He is pending MRI. If positive will reach out to neurology to discuss secondary prevention. 8:38 AM Hemoglobin A1c less than 5.7??not consistent with diabetes. Results from MRI pending. 9:25 AM I met with the patient and his after his MRI returned with no evidence of acute infarct. I also spoke with his daughter by phone who is a nurse. Patient reported slight improvement in his symptoms following meclizine and ondansetron. We discussed whether or not to attempt treatment with the Silvia maneuver. He elected to go home and rest. Will prescribe meclizine and ondansetron. Patient and I discussed that he should return to the emergency department if he developed any focal weakness took any falls or if he has any difficulty speaking. Otherwise he will follow-up with his primary care provider next week. It is certainly possible that he may have benign positional paroxysmal vertigo. Quality:[facility] Health Related Social Needs: No Data to Display Sign Out Sign Out Data: Sign Out Comment: Patient presenting with vertigo, gait disturbance, visual disturbance. CT head and CTA head and neck are negative. Continues to be vertiginous. MRI of the brain pending. Last updated by Eduardo Fortune MD at 08/12/24 07:12 Discharge Plan Disposition Patient Disposition: Home Discharge Details Clinical Impression: Dizziness Primary Care Provider: Yamil Abrams ED Provider: Gallo Rodríguez [place] Meds and New Rx's Prescriptions: New ondansetron 4 mg tablet,disintegrating 4 mg PO BID 5 Days Qty: 10 0RF meclizine 25 mg tablet 25 mg PO TID Qty: 7 0RF Continued aspirin 81 mg tablet,delayed release (DR/EC) 81 mg PO DAILY rosuvastatin 40 mg tablet 40 mg PO DAILY Qty: 90 3RF losartan 50 mg tablet 50 mg PO DAILY Qty: 90 3RF Rx Instructions: dose increase 08/14/23 Discharge Instructions Instructions: Dizziness, Adult ED Additional Instructions: You were seen in the emergency department for your dizziness. Your CAT scan showed no sign of a stroke. Your MRI was also reassuring. You were not anemic and did not need a blood transfusion. Your electrolytes were reassuring. Please follow-up with your primary care provider next week. Please return to the emergency department if you develop any weakness begin vomiting and do not stop or if you have any other concerns. You are receiving prescriptions for medicines to treat nausea and dizziness.
[2024-08-12 08:25] LABS: Hemoglobin A1C 5.6 % (<5.7)
[2024-08-12 08:39] LABS: Lab Add On Test DONE
== END 2024-08-12 09:48 | disposition home or self-care (01) ==
PROVIDERS: Emergency Medicine; Emergency Provider Emergency Medicine; PCP Family Medicine
DX: R42 Dizziness and giddiness (principal)
CPT/HCPCS: 00123; 36415; 36416; 70496; 70498; 80053; 82962; 93005; 96374; 99284; 70551; 83036; 83735; 85025; 85610; 93010; 99283; J2405; J3490

== ENCOUNTER 2025-02-11 00:38 | Outpatient (CLI) | payer BC, SELFPAY ==
--- NOTE | 2025-02-11 09:00 | DI.RAD_ITS ---
Exam(s) XR SHOULDER LT COMPLETE 2+V EXAM: XR SHOULDER LT COMPLETE 2+V CLINICAL HISTORY: mac shoulder pain, m25.511, m25.512. TECHNIQUE: 2D digital imaging was performed. Four views. COMPARISON: CR XR SHOULDER RT COMPLETE 2+V from 02/11/2025 FINDINGS: BONES: No acute fracture is present. No bony destructive lesion is seen. JOINTS: No dislocation present. There is moderate spurring at the AC joint. Spurring at the undersu rface of the acromion. There is a coarse calcification noted superior to the greater tuberosity cons istent with calcific tendinosis. The glenohumeral joint space is maintained. There is mild spurring at the inferior glenoid. SOFT TISSUE: Normal. IMPRESSION: Degenerative changes and calcific tendinosis. DATA REPOSITORY: RADIATION DOSE DELIVERED:
--- NOTE | 2025-02-11 09:00 | DI.RAD_ITS ---
Exam(s) XR SHOULDER RT COMPLETE 2+V EXAM: XR SHOULDER RT COMPLETE 2+V CLINICAL HISTORY: rt shoulder pain, m25.511, m25.512. TECHNIQUE: 2D digital imaging was performed. Five views. COMPARISON: CR LEFT SHOULDER COMPLETE from 10/12/2012 FINDINGS: BONES: No acute fracture is present. No bony destructive lesion is seen. JOINTS: No dislocation present. Spurring at the AC joint and undersurface of the acromion. Spurring at the glenoid. Glenohumeral joint space is maintained. SOFT TISSUE: Normal. IMPRESSION: Mild degenerative changes of the glenohumeral joint and acromioclavicular joint. DATA REPOSITORY: RADIATION DOSE DELIVERED:
== END 2025-02-11 00:58 ==
LOC: DI 00:39
PROVIDERS: PCP Family Medicine; Visit Provider Family Medicine
DX: M19.011 Primary osteoarthritis, right shoulder (principal); M75.32 Calcific tendinitis of left shoulder; M19.012 Primary osteoarthritis, left shoulder
CPT/HCPCS: 73030

== ENCOUNTER 2025-05-17 15:45 | Outpatient (REF) | payer BC, SELFPAY ==
[2025-05-17 21:02] LABS: Abs Immature Grans 0.02 10^3/uL (0.0-0.06); HCT 44.2 % (40.0-50.0); HGB 15.4 g/dL (13.5-17.5); Immature Grans % 0.2 %; MCH 30.0 pg (27.0-33.0); MCHC 34.8 % (32.0-36.0); MCV 86 fL (80-95); MPV 10.4 fL (8.0-11.0); Platelet Count 241 10^3/uL (130-400); RBC 5.13 10^6/uL (4.36-5.78); RDW 12.7 % (11.8-14.1); RDW-SD 39.8 fL; WBC 8.70 10^3/uL (4.4-10.8)
[2025-05-17 21:39] LABS: ALT 62 U/L (16-63); AST 31 U/L (15-37); Albumin 3.8 g/dL (3.4-5.0); Alkaline Phosphatase 97 U/L (46-116); Anion Gap 11.6 mmol/L (3-11); BUN 15 mg/dL (7-18); Bilirubin, Total 0.5 mg/dL (0.2-1.0); CO2 25.4 mmol/L (21.0-32.0); Calcium 9.2 mg/dL (8.5-10.1); Chloride 102 mmol/L (98-107); Estimated GFR 86.70 (mL/min/1.73m2); Glucose 154 mg/dL (74-106); Potassium 4.0 mmol/L (3.5-5.1); Sodium 139 mmol/L (136-145); Total Protein 7.5 g/dL (6.4-8.2)
[2025-05-18 09:09] LABS: Lab Add On Test DONE
[2025-05-18 10:03] LABS: Hemoglobin A1C 5.7 % (<5.7)
== END 2025-05-17 15:46 | disposition home or self-care (01) ==
LOC: LBN 15:45
PROVIDERS: PCP Family Medicine; Visit Provider Nurse Practitioner Family
DX: K57.92 Diverticulitis of intestine, part unspecified, without perforation or abscess without bleeding (principal); R73.9 Hyperglycemia, unspecified
CPT/HCPCS: 80053; 83036; 85025